=== PATIENT | male | born 1940 | race Caucasian/White ===

== ENCOUNTER → 2017-08-02 | Outpatient (CLI) | payer MEDICARE ==
[2017-08-02] MEDS: IOHEXOL 240 MG/ML 50ML VIAL. PO (09:45)
[2017-08-02] MEDS: IOHEXOL 300 MG/ML 100ML VIAL. IV (11:07)
== END | disposition home or self-care (01) ==
LOC: CT 09:22
DX: C85.90 Non-Hodgkin lymphoma, unspecified, unspecified site (principal); N40.0 Benign prostatic hyperplasia without lower urinary tract symptoms; M48.54XD Collapsed vertebra, not elsewhere classified, thoracic region, subsequent encounter for fracture with routine healing; I70.0 Atherosclerosis of aorta; K40.20 Bilateral inguinal hernia, without obstruction or gangrene, not specified as recurrent
CPT/HCPCS: 71260; 74177; Q9966; Q9967

== ENCOUNTER → 2018-08-20 | Outpatient (CLI) | payer MEDICARE ==
[2015-03-10 09:55] VITALS: BP 122/62
[~2018-08-20] MED LIST: EZET10TA18 PO; GLYB5TAB3 PO; IOHEXOL 240 MG/ML 50ML VIAL. PO ONE; IOHEXOL 300 MG/ML 100ML VIAL. IV ONE; METF1000 PO; METO100T5 PO; PIOG15TA42 PO; TAMS0.4C2 PO; VALS80TA3 PO
[2018-08-20 11:33] LABS: CREATININE 0.8 mg/dL (0.7-1.3); GFR 93.3
--- NOTE | 2018-08-20 13:19 | RAD ---
CT of the chest, abdomen, and pelvis with contrast. INDICATION: Lymphoma COMPARISON STUDY: CT of the chest abdomen and pelvis August 02, 2017. CT of the abdomen without contrast May 05, 2012 TECHNIQUE: Multidetector CT imaging of the chest, abdomen, and pelvis was performed following the administration of intravenous contrast. Findings: Heart size is normal. No significant pericardial effusion is seen. No pathologic mediastinal adenopathy is identified. No focal consolidation or infiltrate is seen. No pneumothorax or pleural effusion is seen. No acute osseous abnormality is identified. Limited visualization of the upper abdomen demonstrates no acute abnormality. The liver, adrenal glands, spleen, and kidneys demonstrate no acute abnormality. There is a somewhat ill-defined hypodense lesion in the pancreatic tail. This measures approximately 1.9 cm in maximal diameter. On prior studies going back to 2011 the lesion is stable in size. Morphology is similar. Given size less than 2 cm, and stability over greater than 5 years a benign cyst or benign neoplasm is most likely. There is no bowel obstruction. There is no acute inflammatory change involving the bowel identified. No significant abdominal or pelvic adenopathy is appreciated. Prostamegaly minimal bladder wall thickening is stable. No acute osseous changes are seen. IMPRESSION: 1. Stable appearance of the chest abdomen and pelvis. No new lesions are identified. 2. 1.9 cm hypodense lesion in the pancreatic tail grossly stable in size since April 2012. Finding most likely therefore represents a small cyst, or benign cystic neoplasm. Continued attention on follow-up studies recommended. In the seemingly unlikely event that significant growth be detected, MRI could be performed for further characterization. CT DOSING PQRS STATEMENT: One or more of the following individualized dose reduction techniques were utilized for this examination: 1. Automated exposure control 2. Adjustment of the mA and/or kV according to patient size 3. Use of iterative reconstruction technique Electronically signed by: Alex Boyce MD (08/20/2018 1:16 PM) [id number]
== END | disposition home or self-care (01) ==
LOC: CT 10:51
PROVIDERS: ATTEND Internal Medicine Hematology & Oncology
DX: C85.90 Non-Hodgkin lymphoma, unspecified, unspecified site (principal); K86.2 Cyst of pancreas
CPT/HCPCS: 36415; 71260; 74177; 82565; Q9966; Q9967

== ENCOUNTER → 2019-11-06 | Outpatient (CLI) | payer MEDICARE ==
[2015-03-10 09:55] VITALS: BP 122/62
[~2019-11-06] MED LIST changes: +CONTRAST GIVEN. MC PRN; -EZET10TA18 PO; +EZET10TA20 PO
--- NOTE | 2019-11-06 14:16 | RAD ---
CT scan of the chest, abdomen and pelvis with contrast 11/06/2019 CLINICAL HISTORY: Lymphoma. TECHNIQUE: After the oral and intravenous administration of contrast, contiguous, 5 mm axial sections were obtained through the chest, abdomen and pelvis. 75 cc of Omnipaque 300 were administered intravenously during this examination. One or more of the following individualized dose reduction techniques were utilized for this study: 1. Automated exposure control. 2. Adjustment of the mA and/or kV according to patient size. 3. Use of iterative reconstruction technique. FINDINGS: Comparison study is dated 08/20/2018. Atherosclerotic calcification of the thoracic aorta and its branches is noted. The thoracic aorta is tortuous but tapers normally. Scattered coronary artery calcifications are seen. The heart is mildly enlarged. No hilar, mediastinal or axillary lymphadenopathy is seen. Minimal dependent subsegmental atelectasis is seen involving both lungs. Mild bronchiectasis is seen involving both lower lobes. No area of consolidation is seen. No pulmonary mass or significant pulmonary nodule is noted. No pleural effusion or pneumothorax is seen. The liver, spleen, adrenal glands and kidneys are within normal limits. 1.9 cm low-attenuation lesion is seen involving the tail of pancreas which is unchanged from the previous examination. No acute abnormality of the pancreas is seen. The Gallbladder is slightly contracted. No free fluid or free air is seen within the abdomen. Atherosclerotic calcification of the abdominal aorta is seen. The abdominal aorta tapers normally. No retroperitoneal lymphadenopathy is seen. The appendix is well-visualized and is within normal limits. Images through the pelvis demonstrate the urinary bladder to be contracted. The prostate gland is enlarged likely related to BPH. Calcifications are seen within the pelvis consistent with phleboliths. No free fluid is noted. No pelvic or inguinal lymphadenopathy is seen. Scattered diverticula are seen involving the sigmoid colon. No inflammatory changes are seen in the adjacent fat. Very mild S-shaped curvature of the thoracolumbar spine is seen. Degenerative changes are seen involving the thoracic and throughout the lumbar spine and both hips. IMPRESSION: Stable CT appearance of the chest abdomen and pelvis. There is no CT evidence of metastatic disease. No acute abnormality is seen. Electronically signed by: Gage Dyer MD (11/06/2019 2:13 PM) [id number]
== END | disposition home or self-care (01) ==
LOC: CT 11:20
PROVIDERS: ATTEND Internal Medicine Hematology & Oncology
DX: K57.30 Diverticulosis of large intestine without perforation or abscess without bleeding (principal); J98.11 Atelectasis; C82.00 Follicular lymphoma grade I, unspecified site; I70.0 Atherosclerosis of aorta; I25.10 Atherosclerotic heart disease of native coronary artery without angina pectoris; I51.7 Cardiomegaly; J47.9 Bronchiectasis, uncomplicated; N28.89 Other specified disorders of kidney and ureter; M43.8X5 Other specified deforming dorsopathies, thoracolumbar region; M47.895 Other spondylosis, thoracolumbar region
CPT/HCPCS: 71260; 74177; Q9966; Q9967

== ENCOUNTER → 2021-07-25 | Outpatient (CLI) | payer MEDICARE ==
[2015-03-10 09:55] VITALS: BP 122/62
[~2021-07-25] MED LIST changes: -CONTRAST GIVEN. MC PRN; -IOHEXOL 240 MG/ML 50ML VIAL. PO ONE; -IOHEXOL 300 MG/ML 100ML VIAL. IV ONE
--- NOTE | 2021-07-25 17:12 | RAD ---
EXAM: Lower extremity arterial Doppler sonogram with ankle-brachial indices (BRENDA). HISTORY: Diabetic neuropathy. Peripheral vascular disease. Atherosclerosis. TECHNIQUE: Doppler sonographic evaluation of the lower extremities was performed and pressure reading s were assessed. FINDINGS: Right brachial pressure: 131 mmHg Left brachial pressure: 132 mmHg Right ankle pressure (dorsalis pedis artery): 140 mmHg Right ankle pressure (posterior tibial artery): 152 mmHg Right BRENDA: 1.15 Left ankle pressure (dorsalis pedis artery): 151 mmHg Left ankle pressure (posterior tibial artery): 142 mmHg Left BRENDA: 1.14 There is moderate atherosclerotic plaque throughout the bilateral lower extremity arteries. There is a severely elevated peak systolic velocity of 266 cm/s and abnormal monophasic waveform within the ri ght anterior tibial artery. There is also a mildly elevated peak systolic velocity within the distal right posterior tibial artery, measuring 154 cm/s. There are biphasic and triphasic waveforms an norm al peak systolic velocities throughout the remainder of the lower extremity arteries. IMPRESSION: 1. Normal bilateral ankle-brachial indices. 2. 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 No additional hemodynamically signifi cant stenosis is seen. Electronically signed by: Diane Mendoza MD (07/25/2021 5:10 PM) [id number]
== END ==
LOC: US 14:00
PROVIDERS: ATTEND Family Medicine
DX: E11.42 Type 2 diabetes mellitus with diabetic polyneuropathy (principal); I70.203 Unspecified atherosclerosis of native arteries of extremities, bilateral legs
CPT/HCPCS: 93922; 93925